=== PATIENT | male | born 1935 | race African-American/Black ===

== ENCOUNTER 2017-10-14 18:09 | Emergency (ER) | payer OTHER, MEDICARE ==
[~2017-10-14] VITALS: Ht 180.3 cm; Wt 68.0 kg
[~2017-10-14 18:09] MED LIST: ACET325T53 GT; ALBU2.5V7 INH; ASCO500T20 GT; ATOR10TA68 GT; BISA5TAB10 RC; BUME1TAB4 GT; CAT.1 GT; CHLO473M5 DENTAL026; FAMO20TA98 GT; FER300L GT; FOLI-43 GT; HYDR-1189 GT; IPRA0.2S6 INH; LEVE1000 GT; LEVO75TA7 GT; LISI40TA4 GT; MAGN400O4 GT; MVI WITH MINERALS GT; NA P118E RC; NOR10 GT; ROB1 GT; SENN-153 GT; SUCR1ORA2 GT; ZIN220 GT; [UNRECOGNIZED DRUG - OTHER] GT
--- NOTE | 2017-10-14 18:09 | NUR ---
BIB [address] from [facility] for low 02 sat and hot to touch. Pt is vent dependent. Upon placement in bed 8, pt was being bagged by EMT's with BVM via trach. Eyes fixed, no spontanous breaths, no moving, no pulse. Code Blue called.
--- NOTE | 2017-10-14 18:09 | NUR ---
No femoral pulse noted.
--- NOTE | 2017-10-14 18:09 | NUR ---
Per medics, pt was tracking and moaning en route and they got 02 sats up to 100%. IO placed to right lower leg.
[2017-10-14] MEDS ORDERED: CALCIUM CHLORIDE 1 GM/10 ML DISP.SYRIN (14 mEq Ca++/SYR) IV ONE (18:10)
[2017-10-14] MEDS ORDERED: EPINEPHrine JECT 1 MG/10 ML SYR IVP ONE (18:10)
[2017-10-14] MEDS ORDERED: SODIUM BICARBONATE 8.4% JECT 50 MEQ/50 ML SYRINGE IVP ONE (18:10)
--- NOTE | 2017-10-14 18:10 | NUR ---
Dr. Saenz at bedside. Patient not known to be of DNR status. CPR initiated. See code blue sheet.
--- NOTE | 2017-10-14 18:10 | NUR ---
EMT started chest compressions.
--- NOTE | 2017-10-14 18:15 | NUR ---
Rohan ahumada in EDM - 10/14/17 at 1911 by [email or web address] IO was placed to right tib-fib, 15g, by Hitesh LEHMAN Good blood return and flush.
--- NOTE | 2017-10-14 18:32 | NUR ---
called, notified of pt condition, advised to come into ER.
--- NOTE | 2017-10-14 18:32 | NUR ---
Dr. Saenz pronounced time of at 1832.
--- NOTE | 2017-10-14 18:53 | NUR ---
[facility] Department of [employer] Inspector called contacted by Lelia. Spoke with Rocio. Case was rejected.
--- NOTE | 2017-10-14 19:01 | NUR ---
[facility] # [id number].
--- NOTE | 2017-10-14 19:08 | NUR ---
Called smokehouse operator, Mary, and notified her of .
--- NOTE | 2017-10-14 19:19 | NUR ---
Amanda SLAUGHTER notified Dr. Hawthorne of . Dr. Hawthorne stated he would sign certificate.
--- NOTE | 2017-10-14 19:26 | NUR ---
Assumed care. Awaiting arrival of patient's to bedside.
--- NOTE | 2017-10-14 19:32 | NUR ---
Family at bedside, will discuss preference of mortuary placement with patient's when she arrives in the ER.
--- NOTE | 2017-10-14 20:24 | NUR ---
Spoke to Hitesh at [facility] in [place], [place]. Hitesh states she will call back with an ETA for patient pickup.
--- NOTE | 2017-10-14 20:28 | NUR ---
[facility] business services representative called back, states ETA will be in 1 hour.
--- NOTE | 2017-10-14 21:30 | NUR ---
[facility] access representative at bedside.
--- NOTE | 2017-10-14 21:55 | NUR ---
[facility] pharmacy services representative walked out of ER bay with patient in gurney and bag. Correct patient identified by wristband.
--- NOTE | 2017-10-21 08:47 | NUR ---
LATE ENTRY: RT Note: 10/14/2017 1810 Called to pt bedside for code blue. EMT is giving compressions at this time. Pt given breaths with BVM via trach tube. 183 Pt
== END 2017-10-14 18:32 | disposition expired ==
LOC: SED 18:09
DX: I46.9 Cardiac arrest, cause unspecified (principal); I10 Essential (primary) hypertension; E11.29 Type 2 diabetes mellitus with other diabetic kidney complication; N28.9 Disorder of kidney and ureter, unspecified; Z79.899 Other long term (current) drug therapy; Z99.11 Dependence on respirator [ventilator] status
CPT/HCPCS: 92950; 99285; J0171; 94002